=== PATIENT | male | born 1975 | race Caucasian/White ===

== ENCOUNTER 2016-12-24 12:36 | Emergency (ER) | payer MEDICARE, OTHER ==
[2016-12-24 12:36] VITALS: BMI 29.6
[2016-12-24 12:40] VITALS: RESP 18; TEMP 98.3
--- NOTE | 2016-12-24 13:13 | C.PDOC ---
History Of Present Illness <Ashley Shaw - Last Filed: 12/24/16 13:09> <MinepatriziaJoseph abrams DO - Last Filed: 02/01/17 20:11> The patient, a 41 y/o male, presents to the ED requesting a prescription for Percocoet. Patient reports lower back pain that radiates towards his leg. Patient states he has been taking Percocet for more than 2 years. Patient states he is scheduled for an appointment with his PMD in 2 days. Otherwise, he denies fever, chills, recent trauma/injury. (Juanita BEANJoseph) <Ashley Shaw - Last Filed: 12/24/16 13:09> History Per: Patient History/Exam Limitations: no limitations Onset/Duration Of Symptoms: Persistent Current Symptoms Are (Timing): Still Present Additional History Per: Patient - Knee Description Of Injury: denies: Fell, Struck With Object, Struck Against Object, Twisted, Laceration - Ankle/Foot Description Of Injury: denies: Fell, Struck With Object, Struck Against Object, Twisted, Laceration <Juanita Joseph BEAN - Last Filed: 02/01/17 20:11> Chief Complaint (Nursing): Lower Extremity Problem/Injury Past Medical History - Medical History PMH: Anxiety, Back Problems, Bipolar Disorder, Depression, HTN, Hypercholesterolemia, Hyperlipidemia, Pneumonia, Chronic Kidney Disease, Schizophrenia Denies: Gastrointestinal Ulcer, Seizures, TIA Family History: States: Unknown Family Hx - Social History Hx Tobacco Use: Yes Hx Alcohol Use: No Hx Substance Use: No - Immunization History Hx Tetanus Toxoid Vaccination: No Hx Influenza Vaccination: No Hx Pneumococcal Vaccination: No <Ashley Shaw - Last Filed: 12/24/16 13:09> Reviewed: Historical Data, Nursing Documentation, Vital Signs - Medical History PMH: No Chronic Diseases Surgical History: No Surg Hx Family History: States: Unknown Family Hx <Minesara Joseph BEAN - Last Filed: 02/01/17 20:11> Vital Signs: Last Vital Signs Temp 98.3 F 12/24/16 12:39 Pulse 85 12/24/16 14:06 Resp 18 12/24/16 14:06 BP 136/78 12/24/16 14:06 Pulse Ox 98 12/24/16 18:53 - [facility] Procedures EXCISION OF RIGHT LOWER ARM SKIN, EXTERNAL APPROACH, DIAGN (01/10/16) EXTRACTION OF R LOW ARM SUBCU/FASCIA, PERC APPROACH (01/10/16) INJECT/INFUSE NEC (11/03/14) MAGNETIC RESONANCE IMAGING OF BRAIN AND BRAIN STEM (10/30/12) MRI OF OTHER AND UNSPECIFIED SITES (10/30/12) TRANSFER R LOW ARM SUBCU/FASCIA, PERC APPROACH (01/10/16) Review Of Systems Except As Marked, All Systems Reviewed And Found Negative. Constitutional: Negative for: Fever, Chills Musculoskeletal: Positive for: Back Pain (lower ), Leg Pain (left ) <Joseph Grant DO - Last Filed: 02/01/17 20:11> Physical Exam - Physical Exam Appears: Non-toxic, No Acute Distress Skin: Normal Color, Warm, Dry Head: Atraumatic, Normacephalic Eye(s): bilateral: Normal Inspection, EOMI Oral Mucosa: Moist Neck: Normal ROM, Supple Chest: Symmetrical, No Deformity, No Tenderness Cardiovascular: Rhythm Regular, No Murmur Respiratory: Normal Breath Sounds, No Rales, No Rhonchi, No Wheezing Back: Normal Inspection, No Vertebral Tenderness, No Paraspinal Tenderness Extremity: Normal ROM, Capillary Refill (less than 2 seconds ) Neurological/Psych: Oriented x3, Normal Speech, Normal Cognition Gait: Steady <Joseph Grant DO - Last Filed: 02/01/17 20:11> ED Course And Treatment O2 Sat by Pulse Oximetry: 99 <Ashley Shaw - Last Filed: 12/24/16 13:09> O2 Sat by Pulse Oximetry: 98 (on RA) Pulse Ox Interpretation: Normal Progress Note: Patient received Percocet PO. <Joseph Grant DO - Last Filed: 02/01/17 20:11> Medical Decision Making <Ashley Shaw - Last Filed: 12/24/16 13:09> <Joseph Grant DO - Last Filed: 02/01/17 20:11> Medical Decision Making: Spoke with patient's physician who he will be seeing in 2 days, as scheduled. Physician states she is willing to evaluate patient this afternoon. Patient is still requesting more Oxycodone in the ED. Explained to patient that prescription for chronic pain cannot be given in the ED. (Joseph Grant DO) Disposition <Ashley Shaw - Last Filed: 12/24/16 13:09> - Disposition Disposition Time: 18:30 <Joseph Grant DO - Last Filed: 02/01/17 20:11> - Disposition Referrals: Bradley Brumfield [Primary Care Provider] - Disposition: HOME/ ROUTINE Condition: IMPROVED Additional Instructions: Thank you for letting us take care of you today. Your provider was Dr. Grant. You were treated for chronic back pain. The emergency medical care you received today was directed at your acute symptoms. If you were prescribed any medication, please fill it and take as directed. It may take several days for your symptoms to resolve. Return to the Emergency Department if your symptoms worsen, do not improve, or if you have any other problems. Please contact your doctor or call one of the physicians/clinics you have been referred to that are listed on the Patient Visit Information form that is included in your discharge packet. Bring any paperwork you were given at discharge with you along with any medications you are taking to your follow up visit. Our treatment cannot replace ongoing medical care by a primary care provider (PCP) outside of the emergency department. Thank you for allowing the [facility] team to be part of your care today. YOU MUST FOLLOW UP WITH YOUR DOCTOR TO GET PRESCRIPTIONS FOR YOUR PAIN MANAGEMENT. YOU CANNOT GET NARCOTIC PRESCRIPTIONS FROM AN EMERGENCY ROOM FOR CHRONIC PAIN. Instructions: Chronic Back Pain (ED) - Clinical Impression Clinical Impression: Back pain <Ashley Shaw - Last Filed: 12/24/16 13:09> - Scribe Statement The provider has reviewed the documentation as recorded by the Scribe (Emily Johnson) <Joseph Grant DO - Last Filed: 02/01/17 20:11> - Scribe Statement Provider Attestation: All medical record entries made by the Scribe were at my direction and personally dictated by me. I have reviewed the chart and agree that the record accurately reflects my personal performance of the history, physical exam, medical decision making, and the department course for this patient. I have also personally directed, reviewed, and agree with the discharge instructions and disposition. (Joseph Grant DO)
[2016-12-24] MEDS ORDERED: Oxycodone/Acetaminophen 5/325 mg Tab PO STA (13:34)
[2016-12-24] MEDS ORDERED: Oxycodone/Acetaminophen 5/325 mg Tab ONE (13:36)
[2016-12-24 14:07] VITALS: BP 136/78; PULSE 85; O2SAT 98
== END 2016-12-24 14:07 | disposition home or self-care (01) ==
LOC: C.ER 12:36 → SUPCPDRO 12:36 → C.ER 14:07
DX: M54.9 Dorsalgia, unspecified (principal)